=== PATIENT | male | born 1970 | race Caucasian/White ===

== ENCOUNTER 2021-07-05 17:04 | Emergency (ER) | payer SELFPAY ==
[~2021-07-05] VITALS: Ht 167.6 cm; Wt 99.8 kg
[2021-07-05 17:09] VITALS: BP 144/76
[2021-07-05] MEDS ORDERED: NACL 0.9% 1,000 ML IV ONE (17:40)
[2021-07-05] MEDS ORDERED: NACL 0.9% 1,000 ML IV SCH (17:40)
--- NOTE | 2021-07-05 17:44 | NUR ---
PT TAKEN TO XRAY VIA W/C
--- NOTE | 2021-07-05 17:48 | NUR ---
PT BROUGHT T BED 5 VIA W/C FROM XRAY
--- NOTE | 2021-07-05 17:48 | NUR ---
LAB AT PATIENT BEDSIDE
--- NOTE | 2021-07-05 17:53 | NUR ---
18G IV ESTABLISHED IN [facility]. BLOODWORK COLLECTED AND HANDED TO SENIOR RESERVATIONS AGENT
[2021-07-05 18:01] LABS: EOSINOPHILS % (AUTO) 0.1 % (0.0-4.0); LYMPHOCYTES # (AUTO) 1.2 K/uL (2.0-11.5); MONOCYTES # (AUTO) 0.6 K/uL (0.8-1.0)
--- NOTE | 2021-07-05 18:12 | NUR ---
URINE COLLECTED AND HANDED TO PROFESSOR OF SOCIOLOGY BEDSIDE
[2021-07-05 18:17] LABS: BASOPHILS % (AUTO) 0.2 % (0.0-2.0); HEMATOCRIT 44.4 % (36-52); HEMOGLOBIN 14.7 g/dL (12.0-18.0); LYMPHOCYTES % (AUTO) 9.9 % (20.5-51.1); MEAN CORPUSCULAR HEMOGLOBIN 28 pg (27-31); MEAN CORPUSCULAR HGB CONC 33 g/dL (33-37); MONOCYTES % (AUTO) 4.6 % (1.7-9.3); NEUTROPHILS # (AUTO) 10.7 K/uL (1.8-7.7); NEUTROPHILS % (AUTO) 85.2 % (42.2-75.2); PLATELET COUNT (AUTO) 294 K/uL (140-450); RED BLOOD CELL COUNT(AUTO) 5.22 MIL/uL (4.20-6.10); RED CELL DISTRIBUTION WIDTH 13.6 % (11.6-13.7); WHITE BLOOD COUNT (AUTO) 12.5 K/uL (4.8-10.8)
--- NOTE | 2021-07-05 18:27 | NUR ---
50Y MALE BIB BIB [id number] [place] [employer] FOR PREBOOK C/O ELEVATED HR. HR 112 AT THIS TIME. PT DENIES ANY PAIN AT THIS TIME. PT [id number] WITH SKIN DRY AND INTACT. PMH: DENIES NKA
[2021-07-05 18:30] LABS: ALBUMIN 4.3 g/dL (3.4-5.0); ANION GAP 15.4 (8-16); CARBON DIOXIDE 24.4 mmol/L (21-32); POTASSIUM 3.8 mmol/L (3.5-5.1); TOTAL BILIRUBIN 0.3 mg/dL (0.0-1.0)
[2021-07-05 18:40] LABS: ACETAMINOPHEN < 0.5 ug/ml (10-30); SALICYLATE < 2.8 mg/dL (2.8-20.0)
[2021-07-05 18:50] LABS: BARBITURATE, URINE NEGATIVE ng/ml (NEG <=200); BENZODIAZEPINE, URINE NEGATIVE ng/mL (NEG <=200); CANNABINOID, URINE NEGATIVE ng/mL (NEG <=50); COCAINE, URINE NEGATIVE ng/mL (NEG <=300); OPIATE, URINE NEGATIVE ng/mL (NEG <=2000); PHENCYCLIDINE SCREEN,URINE NEGATIVE ng/mL (NEG <=25)
--- NOTE | 2021-07-05 19:15 | NUR ---
REPORT RECIEVED FROM CORY SANTILLAN
--- NOTE | 2021-07-05 19:18 | NUR ---
Pt report given to TITO benton. Transfer of care at this time.
--- NOTE | 2021-07-05 20:09 | NUR ---
PENDING D DIMER RESULTS. PD AT BEDSIDE.
[2021-07-05 20:40] VITALS: BP 120/80
--- NOTE | 2021-07-05 20:40 | NUR ---
Patient discharged with v/s stable. Written and verbal after care instructions given and explained. Patient verbalized understanding. Ambulatory with in custody. All questions addressed prior to discharge. Advised to follow up with PMD.
--- NOTE | 2021-07-05 21:12 | NUR ---
The patient's care was reviewed and supervised by Ayesha Taylor RN. Chart checked
== END 2021-07-05 20:40 ==
LOC: MED 17:04
DX: R00.0 Tachycardia, unspecified (principal); R07.2 Precordial pain; Z02.89 Encounter for other administrative examinations; Z90.49 Acquired absence of other specified parts of digestive tract
CPT/HCPCS: 36415; 71045; 80053; 80305; 83880; 84484; 85025; 85379; 93005; 96360; 99285; G0480; G0482